=== PATIENT | female | born 1940 | race Caucasian/White ===

== ENCOUNTER 2018-02-19 06:49 | Day surgery (SDC) | payer MEDICARE, BC ==
[~2018-02-19 06:49] MED LIST: Acetaminophen TAB* 325 MG PO PRN; Buffered Lidocaine 0.9% SYRIN* 5 ML/SYR SYRINGE INTRADERM ONE
[2018-02-19] MEDS ORDERED: Midazolam* 1 MG/ML 2 ML VIAL (2 MG) ONE (08:07)
[2018-02-19] MEDS ORDERED: fentaNYL* 50 MCG/ML 2 ML VIAL (100 MCG VIAL) ONE (08:45)
[2018-02-19 09:13] VITALS: BP 125/64
[2018-02-19] MEDS ORDERED: acetaZOLAMIDE TAB* 250 MG ONE (11:06)
[2018-02-19] MEDS ORDERED: Phenylephrine 2.5% OPTH.SOL* 2 ML BTL ONE (11:06)
[2018-02-19] MEDS ORDERED: Tetracaine 0.5% OPTH.SOL 4 ML* 1 DROP BTL ONE (11:06)
[2018-02-19] MEDS ORDERED: Lidocaine 1%* 5 ML VIAL ONE (11:06)
[2018-02-19] MEDS ORDERED: Ketorolac 0.5% OPHTH (NF) 0.5 % 5 ML BTL ONE (11:06)
[2018-02-19] MEDS ORDERED: Tropicamide 1% OPTH.SOL* BTL ONE (11:06)
[2018-02-19] MEDS ORDERED: Povidone Iodine 5% OPTH* 30 ML BTL ONE (11:06)
[2018-02-19] MEDS ORDERED: Cyclopentolate 1% OPTH.SOL* 2 ML BTL ONE (11:06)
[2018-02-19] MEDS ORDERED: Neomycin/Polymy/Dex OPHTH.OIN* 3.5 GM ONE (11:06)
--- NOTE | 2018-02-19 14:42 | OP ---
DATE OF OPERATION: 02/19/18 - [facility] DATE OF : 40 SURGEON: Victoriano Brantley MD ANESTHESIA: Monitored anesthesia care. PRE-OP DIAGNOSIS: Cataract, right eye with astigmatism. POST-OP DIAGNOSIS: Cataract, right eye with astigmatism. OPERATIVE PROCEDURE: Extracapsular cataract extraction of the right eye with intraocular lens implant. IMPLANTS: SN6AT6 21.5 diopter lens at 5 degrees. COMPLICATIONS: None. DESCRIPTION OF PROCEDURE: The patient was given phenylephrine 2.5% and cyclopentolate 1% eye drops to the operative eye in the preoperative area. Corneal markings were placed to assist toric lens placement with the patient in the upright position. The patient was taken to the operating room where a time- out was taken to identify the correct patient, site, and side of surgery and correct lens implant. The patient's right eye was prepped and draped in the usual sterile fashion with 5% Betadine. A second time-out was taken to verify the correct patient, site, and side of surgery, and correct lens implant. A lid speculum was placed to the right eye. Corneal markings were placed at 5 degrees using a Miller degree marker. A 1 mm paracentesis blade was used to make a clear corneal incision in the superotemporal position. Preservative- free 1% lidocaine was injected into the anterior chamber. DisCoVisc was then injected into the anterior chamber. A 2.75 mm keratome blade was used to make a triplanar incision at the inferotemporal position. A cystotome initiated the capsulorrhexis, which was completed with Utrata forceps in a continuous and curvilinear manner. Hydrodissection of the lens was performed with BSS on a cannula. The lens could be spun in a capsular bag. The phacoemulsification handpiece was used with a [id number]-vpo-[id number] technique to remove to nucleus with 20.31 CDE. The I/A handpiece then removed with a residual cortical lens material. DisCoVisc was injected to inflate the capsular bag. The planned SN6AT6 21 .0 diopter lens was injected into the capsular bag and rotated to 5 degrees. The residual DisCoVisc was removed from the eye with a I/A handpiece. The lens was again confirmed to be in correct position. The corneal incisions were hydrated and no leaks occurred at physiologic pressure around 20 mmHg per palpation. The lid speculum was removed and drapes removed. Maxitrol ointment was placed to the surface of the operative eye. An adhesive patch and shield was then placed on the operative eye. The patient was taken to the postoperative area in stable condition. [id number]/[facility] #: [id number] MTDD
== END 2018-02-19 09:15 | disposition home or self-care (01) ==
LOC: OREAST 06:49
PROVIDERS: ATTEND Student in an Organized Health Care Education/Training Program
DX: H25.11 Age-related nuclear cataract, right eye (principal); H52.201 Unspecified astigmatism, right eye; H43.811 Vitreous degeneration, right eye; Z87.891 Personal history of nicotine dependence; I10 Essential (primary) hypertension; E78.5 Hyperlipidemia, unspecified; J45.909 Unspecified asthma, uncomplicated; E03.9 Hypothyroidism, unspecified; J30.89 Other allergic rhinitis; L50.9 Urticaria, unspecified
CPT/HCPCS: A9270-GY; J2250; J3010; V2787

== ENCOUNTER 2018-02-26 06:48 | Day surgery (SDC) | payer MEDICARE, BC ==
[~2018-02-26 06:48] MED LIST changes: -Acetaminophen TAB* 325 MG PO PRN
[2018-02-26] MEDS ORDERED: Midazolam* 1 MG/ML 2 ML VIAL (2 MG) ONE (08:12)
[2018-02-26] MEDS ORDERED: Propofol* 10 MG/ML 20 ML BTL IV PUSH ONE (08:32)
[2018-02-26] MEDS ORDERED: Lidocaine 2% PF * 5 ML VIAL ONE (08:55)
[2018-02-26 09:21] VITALS: BP 96/81
[2018-02-26] MEDS ORDERED: Neomycin/Polymy/Dex OPHTH.OIN* 3.5 GM ONE (12:43)
[2018-02-26] MEDS ORDERED: Tropicamide 1% OPTH.SOL* BTL ONE (12:43)
[2018-02-26] MEDS ORDERED: Ketorolac 0.5% OPHTH (NF) 0.5 % 5 ML BTL ONE (12:43)
[2018-02-26] MEDS ORDERED: Cyclopentolate 1% OPTH.SOL* 2 ML BTL ONE (12:43)
[2018-02-26] MEDS ORDERED: Phenylephrine 2.5% OPTH.SOL* 2 ML BTL ONE (12:43)
[2018-02-26] MEDS ORDERED: Tetracaine 0.5% OPTH.SOL 4 ML* 1 DROP BTL ONE (12:43)
[2018-02-26] MEDS ORDERED: Lidocaine 1%* 5 ML VIAL ONE (12:43)
[2018-02-26] MEDS ORDERED: acetaZOLAMIDE TAB* 250 MG ONE (12:43)
[2018-02-26] MEDS ORDERED: Povidone Iodine 5% OPTH* 30 ML BTL ONE (12:43)
--- NOTE | 2018-02-27 | OP ---
DATE OF OPERATION: 02/26/18 - [facility] DATE OF : 40 SURGEON: Victoriano Brantley MD ANESTHESIA: Monitored anesthesia care. PRE-OP DIAGNOSIS: Cataract, left eye. POST-OP DIAGNOSIS: Cataract, left eye. OPERATIVE PROCEDURE: Extracapsular cataract extraction of the left eye with intraocular lens implant. IMPLANTS: SN6AT4 22.0 diopter lens to the left eye at 171 degrees. COMPLICATIONS: None. DESCRIPTION OF PROCEDURE: The patient was given phenylephrine 2.5% and cyclopentolate 1% eye drops to the operative eye in the preoperative area. The patient was taken to the operating room where a time-out was taken to verify the correct patient, site, and side of surgery. The patient's left eye was prepped and draped in the usual sterile fashion with 5% Betadine. A second time -out was taken to verify the correct patient, site, and side of surgery, and correct lens implant. A lid speculum was placed to the left eye. Corneal markings were placed at 171 degrees. A 1-mm paracentesis blade was used to make a clear corneal incision in the inferotemporal position. Preservative free 1% lidocaine was injected into the anterior chamber. DisCoVisc was then injected into the anterior chamber. A 2.75 mm keratome blade was used to make a triplanar incision at the superotemporal position. A cystotome initiated the capsulorrhexis which was completed with Utrata forceps in a continuous and curvilinear manner. Hydrodissection of the lens was performed with BSS on a cannula. The lens could be spun in a capsular bag. The phacoemulsification handpiece was used with a divide and conquer technique to remove nucleus with 31.06 CDE. The I/A handpiece was then removed with a residual cortical lens material. DisCoVisc was injected to inflate the capsular bag. The planned SN6AT4 22.0 diopter lens was injected into the capsular bag and rotated to 171 degrees. The residual DisCoVisc was removed from the eye with a I/A handpiece. The corneal incisions were hydrated and no leaks occurred at physiologic pressure around 20 mmHg per palpation. The lid speculum was removed and drapes removed. Maxitrol ointment was placed to the surface of the operative eye. An adhesive patch and shield was then placed on the operative eye. The patient was taken to the post-operative area in stable condition. [id number] #: [id number] MTDAnita
== END 2018-02-26 09:21 | disposition home or self-care (01) ==
LOC: OREAST 06:48
PROVIDERS: ATTEND Student in an Organized Health Care Education/Training Program
DX: H25.12 Age-related nuclear cataract, left eye (principal); H43.811 Vitreous degeneration, right eye; I10 Essential (primary) hypertension; E03.9 Hypothyroidism, unspecified; E78.00 Pure hypercholesterolemia, unspecified; J45.909 Unspecified asthma, uncomplicated; Z87.891 Personal history of nicotine dependence
CPT/HCPCS: A9270-GY; J2250; J2704; V2787